=== PATIENT | female | born 1960 | race Caucasian/White ===

== ENCOUNTER → 2021-01-17 07:57 | Outpatient (CLI) | payer OTHER, SELFPAY ==
--- NOTE | 2021-01-17 07:59 | DI.MG.S_ITS ---
BILATERAL DIGITAL SCREENING MAMMOGRAM 3D/2D WITH CAD: 01/17/2021 CLINICAL: Routine screening. Comparison is made to exams dated: 09/12/2015 mammogram and 10/31/2010 mammogram - [facility]. The tissue of both breasts is predominantly fatty. Current study was also evaluated with a Computer Aided Detection (CAD) system. No significant masses, calcifications, or other findings are seen in either breast. There has been no significant interval change. IMPRESSION: NEGATIVE There is no mammographic evidence of malignancy. A 1 year screening mammogram is recommended. This exam was interpreted at Station ID: [id number]. NOTE: For mammograms, a report in lay terms will be sent to the patient. Approximately 15% of breast malignancies will not be visualized mammographically. In the management of a palpable breast mass, a negative mammogram must not discourage biopsy of a clinically suspicious lesion. Electronically Signed By: Yonatan reynolds/antoinette:01/17/2021 08:43:04 letter sent: Normal Exam ACR BI-RADS Category 1: Negative [id number]
== END ==
PROVIDERS: PCP Nurse Practitioner Family; Referring Provider Nurse Practitioner Family; Visit Provider Nurse Practitioner Family
DX: Z12.31 Encounter for screening mammogram for malignant neoplasm of breast (principal)
CPT/HCPCS: 77063; 77067

== ENCOUNTER → 2021-01-17 08:43 | Outpatient (CLI) | payer OTHER, SELFPAY ==
[2021-01-17 09:51] LABS: Hematocrit 37.4 % (36-46); Hemoglobin 12.3 g/dL (12.0-16.0); Mean Corpuscular HGB Conc 32.9 % (30-36); Mean Corpuscular Hemoglobin 28.3 PG (26-34); Mean Corpuscular Volume 86.1 fL (80-100); Platelet Count 212 X10^3/uL (150-400); Red Blood Cell Count 4.34 X10^6/uL (4.0-5.2); Red Cell Distribution Width 13.9 % (11.6-14.8); White Blood Cell Count 4.1 X10^3/uL (4.5-11.0)
[2021-01-17 10:09] LABS: Alanine Aminotransferase 38 IU/L (<35); Albumin 4.1 g/dL (3.5-5.0); Albumin Globulin Ratio 1.3 (1.0-2.8); Alkaline Phosphatase 66 U/L (38-126); Aspartate Aminotransferase 45 IU/L (14-36); BUN Creatinine Ratio 24.6 (6-22); Bilirubin Total 0.2 mg/dL (0.2-1.3); Blood Urea Nitrogen 17 mg/dL (7-17); Calcium 9.5 mg/dL (8.4-10.2); Carbon Dioxide 27 mmol/L (22-32); Chloride 104 mmol/L (98-107); Cholesterol 174 mg/dL (140-199); Estimated Glomerular Filt Rate > 60.0 mL/min (>60); Globulin 3.2 g/dL (1.7-4.1); Glucose 115 mg/dL (80-110); HDL Cholesterol 54 mg/dL (40-60); HEMOLYSIS < 15 (0-50); LDL Cholesterol Calculated 106 mg/dL (<100); Potassium 4.6 mmol/L (3.4-5.1); Sodium 140 mmol/L (137-145); Total Protein 7.3 g/dL (6.3-8.2); Triglycerides 68 mg/dL (35-150)
[2021-01-17 10:40] LABS: TSH w/ Reflex to FT4 0.91 uIU/mL (0.47-4.68)
== END ==
PROVIDERS: PCP Nurse Practitioner Family; Referring Provider Nurse Practitioner Family; Visit Provider Nurse Practitioner Family
DX: Z00.00 Encounter for general adult medical examination without abnormal findings (principal); F32.9 Major depressive disorder, single episode, unspecified; F41.9 Anxiety disorder, unspecified; Z13.6 Encounter for screening for cardiovascular disorders
CPT/HCPCS: 36415; 80053; 80061; 84443; 85027

== ENCOUNTER → 2021-01-17 10:09 | Outpatient (CLI) | payer OTHER, SELFPAY ==
[2021-01-17] MEDS: COVID-19 VACC, Ad26(JANSSEN)/PF 0.5 ML IM (10:22)
== END ==
PROVIDERS: PCP Nurse Practitioner Family; Visit Provider Internal Medicine
DX: Z23 Encounter for immunization (principal)
CPT/HCPCS: 0031A; 91303

== ENCOUNTER → 2021-01-20 14:42 | Outpatient (CLI) | payer OTHER, SELFPAY ==
[2021-01-20 15:30] LABS: Hemoglobin A1C% w Est Avg Glu 6.8 % (4.0-6.0)
== END ==
PROVIDERS: PCP Nurse Practitioner Family; Visit Provider Nurse Practitioner Family
DX: R73.9 Hyperglycemia, unspecified (principal)
CPT/HCPCS: 83036

== ENCOUNTER → 2021-02-20 13:19 | Outpatient (CLI) | payer OTHER, SELFPAY ==
[2021-02-20 18:31] LABS: Alanine Aminotransferase 27 IU/L (<35); Albumin Globulin Ratio 1.2 (1.0-2.8); Alkaline Phosphatase 63 U/L (38-126); Aspartate Aminotransferase 31 IU/L (14-36); Bilirubin Total 0.2 mg/dL (0.2-1.3); Bilirubin Unconjugated 0.1 mg/dL (0.0-1.1); Globulin 3.4 g/dL (1.7-4.1); HEMOLYSIS < 15 (0-50); Total Protein 7.4 g/dL (6.3-8.2)
== END ==
PROVIDERS: PCP Nurse Practitioner Family; Referring Provider Nurse Practitioner Family; Visit Provider Nurse Practitioner Family
DX: R74.8 Abnormal levels of other serum enzymes (principal)
CPT/HCPCS: 36415; 80076

== ENCOUNTER 2024-06-08 09:08 | Day surgery (SDC) | payer OTHER, SELFPAY ==
[2024-06-08 09:37] VITALS: BP 148/81; PULSE 78; RESP 16; TEMP 36.1; O2SAT 98
[2024-06-08] MEDS: LACTATED RINGERS 1,000 ML 42 ML IV (09:45)
--- NOTE | 2024-06-08 10:31 | P.HP_ITS ---
History of Present Illness History of Present Illness Date Patient Seen: 06/08/24 Time Patient Seen: 10:31 Chief complaint: Colonoscopy Narrative: Tracie is a 63-year-old woman who is here for a colonoscopy. She believes her last colonoscopy was in 2018 and she has had polyps removed. No family history of colon cancer. [facility] Medical History (Updated 06/08/24 @ 10:32 by Demetri Santos MD) Wears glasses Acne Sleep apnea Allergy to cats Migraines Headache Shoulder pain (~2017) Rubella Chicken pox (~1989) History of recurrent ear infection (~1959) Human papilloma virus (~2004) Colon polyps (~2009) Encounter for wellness examination in adult (01/24/21) Encounter for routine gynecological examination (01/24/21) Epidermoid cyst Diabetes mellitus type 2, diet-controlled (2009) Elevated liver enzymes (01/2021) Migraine headache without aura Encounter to establish care Anxiety (~1998) Depression (~1998) Surgical History (Updated 02/23/21 @ 23:11 by Chio Holbrook) Anesthesia History of colonoscopy History of shoulder surgery (~2017) Family History (Updated 02/23/21 @ 23:15 by Chio Holbrook) Father Pneumonia Mother No problems noted. Family/Other COVID-19 Family/Other Respiratory disease Social History Smoking Status: Never smoker second hand exposure: No alcohol intake: current substance use type: does not use Meds Home Medications and Allergies Home Medications Medication Instructions Recorded Confirmed Type famotidine 10 mg tablet (Pepcid AC) 10 mg PO DAILY PRN Migraine 01/08/21 06/08/24 History Headache lorazepam 1 mg tablet 1 mg PO DAILY PRN Anxiety 01/08/21 06/08/24 History rizatriptan 10 mg tablet See Rx Instructions PO .COMPLEX 01/08/21 06/08/24 History amitriptyline 75 mg tablet See Rx Instructions .Route 08/25/21 06/08/24 Rx .COMPLEX #30 tabs peg 3350-sod sulf,idcyk-hlb-ybk 1,000 ml PO Q15M #2,000 mL 05/04/24 06/08/24 Rx 178.7-7.3-0.5-1.12-0.9 gram oral soln (Suflave) metformin 500 mg tablet 500 mg PO BID 06/08/24 06/08/24 History Allergies Allergy/AdvReac Type Severity Reaction Status Date / Time No Known Drug Allergies Allergy Verified 06/08/24 09:34 Exam Vital Signs (past 8 hours): - 06/08/24 09:37 Temperature 97 F L Pulse Rate 78 Respiratory Rate 16 Blood Pressure 148/81 H Pulse Oximetry 98 Oxygen Delivery Method Room Air Oxygen Delivery Method Room Air Const General: No acute distress Resp Effort & Inspection: normal respiratory effort Assessment & Plan Assessment and plan (1) History of colon polyps: Status: Acute Plan We reviewed the risks and benefits of colonoscopy for history of colon polyps and she would like to proceed. Time-Based Coding :: [TOTAL MINUTES] spent with patient and on the chart (including review of chart, obtaining history, exam, reviewing outside data, placing orders, documenting exam and treatment plan, and counseling patient) on [DATE].
[2024-06-08 11:08] VITALS: BP 115/66; PULSE 91; RESP 16; TEMP 37.3; O2SAT 95
[2024-06-08 11:13] VITALS: BP 117/72; PULSE 88; RESP 19; O2SAT 95
--- NOTE | 2024-06-08 11:15 | PM.OP.COLON ---
Operative Date/Time/Diagnoses Date of procedure: 06/08/24 Time of procedure: 11:15 Pre-op diagnosis: History of polyps Post-op diagnosis: same Procedure & Clinicians Study performed: Colonoscopy Same procedure as scheduled: Yes Surgeon: Demetri Santos Procedure Notes Procedure in detail: Surgeon: Demetri Santos MD Anesthesia: Sarah Barraza CRNA Procedure: The patient was brought to the endoscopy suite, placed in left lateral decubitus position. The patient was connected to monitoring devices. A time-out was performed. Sedation was administered. Once the patient was adequately sedated, a digital rectal exam was performed and was normal. The scope was then inserted and advanced to the cecum where the appendiceal orifice was identified and photographed. The scope was then slowly withdrawn over greater than 6 minutes. The mucosa was thoroughly inspected. There were scattered diverticula. No polyps were found. The scope was retroflexed in the rectum. No abnormalities were seen in the rectum. The scope was straightened and removed. The patient was awakened and brought to recovery. Scope withdrawal time: 8 minutes Sedation time: 11 minutes EBL: 0 Findings: Normal colon Post-procedure Recommendations: Colonoscopy in 10 years Disposition: PACU
[2024-06-08 11:18] VITALS: BP 122/76; PULSE 86; RESP 12; O2SAT 96
[2024-06-08 11:28] VITALS: BP 128/80; PULSE 90; RESP 15; O2SAT 100
== END 2024-06-08 11:35 | disposition home or self-care (01) ==
PROVIDERS: PCP Internal Medicine; Referring Provider Surgery; Visit Provider Surgery
PROC: 0DJD8ZZ Inspection of Lower Intestinal Tract, Via Natural or Artificial Opening Endoscopic (ICD-10-PCS; CPT 45378; principal; 2024-06-08 10:30)
DX: Z12.11 Encounter for screening for malignant neoplasm of colon (principal); Z86.010 Personal history of colon polyps; K57.30 Diverticulosis of large intestine without perforation or abscess without bleeding
CPT/HCPCS: 45378; J2704